=== PATIENT | male | born 1990 | race Caucasian/White ===

== ENCOUNTER 2020-02-21 18:18 | Emergency (ER) | payer OTHER, SELFPAY ==
[2020-02-21 19:49] VITALS: BP 166/102; PULSE 74; RESP 16; TEMP 37.1; O2SAT 100; BMI 28.7
--- NOTE | 2020-02-21 21:58 | ED.GENADULT ---
HPI - General Adult General Chief complaint: Headache Stated complaint: Covid symptoms Time Seen by Provider: 02/21/20 21:33 Source: patient Mode of arrival: ambulatory Limitations: language barrier (automation manager was used to obtain history) History of Present Illness HPI narrative: 30-year-old male who presents emergency department for evaluation headache and exposure to COVID-19. The patient states that his and [id number] both tested positive for COVID-19 and he lives with them. He states that today he began to feel ill he states that he developed a headache located throughout his entire head. The headache is a pressure like pain which is intermittent and is 6/10 at its worst. He had some slight rhinorrhea. He denied sore throat, loss of sense of taste or smell, fever, chills, cough, myalgias, arthralgias or diarrhea. 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 The patient does have a history of hypertension and did not take his antihypertensive medication today. Patient's blood pressure was elevated on presentation of 166/102. Related Data Allergies Allergy/AdvReac Type Severity Reaction Status Date / Time No Known Allergies Allergy Verified 02/21/20 19:53 [No Known Allergies*] Review of Systems Review of Systems: Yes all other systems are reviewed and are negative Neurologic: Reports Abnormal speech present [facility] Past Medical History [facility] Narrative: The patient denies tobacco, alcohol and drug use. Medical History Asthma Cholecystectomy planned HTN (hypertension) Surgical History Hx of tonsillectomy Social History Social History Advance Directives: No Physical Exam Vital Signs: Vital Signs: Last Vital Signs Temp 98.8 F 02/21/20 19:49 Pulse 74 02/21/20 19:49 Resp 16 02/21/20 19:49 BP 166/102 H 02/21/20 19:49 Pulse Ox 100 02/21/20 19:49 Body Mass Index 28.7 Const: General: cooperative and healthy appearing Orientation/consciousness: oriented to person and oriented to place Limitations: no limitations HENMT: Head: Yes normal to inspection, Yes normocephalic and Yes atraumatic Ears: external ears normal General nose exam: Normal external nose present and no nasal discharge noted Face and sinus: Yes normal facial exam and Yes sinus tenderness (Mild frontal and maxillary sinuses) Mouth: Normal oral and palatal mucosa present Throat: Yes posterior oropharynx normal Eyes: Periorbital: periorbital findings normal Eyelids: Yes eyelids normal Conjunctivae: conjunctivae normal Sclerae: sclerae normal Corneas: corneas normal Pupils: Equal, round and reactive pupils present Direct Ophthalmoscopy: normal light reflex Neck: Neck: Yes full ROM, Yes no lymphadenopathy, Yes no meningeal signs, Yes trachea midline and Yes supple Chest: Chest palpation & inspection: normal inspection of the chest and normal palpation of entire chest wall Resp: Effort & Inspection: normal respiratory effort and able to speak in complete sentences Auscultation: clear to auscultation bilaterally Cardio: Rate: regular rate Rhythm: regular rhythm Heart sounds: S1 normal heart sound present, S2 normal heart sound present and no murmurs GI: Inspection: Yes normal to inspection Palpation (GI): Soft to palpation, nontender, no guarding, not rigid and No hepatosplenomegaly present : General: Yes no CVA tenderness Back/Spine/Pelvis: Back: no CVA tenderness Cervical Spine: normal cervical lordosis Thoracic/Lumbar Spine: thoracic and lumbar spine normal to inspection Skin: Lesions: no lesions Rashes: no rashes Wounds: no wounds Neuro: General: oriented to person, oriented to place and no meningeal signs Cranial nerves: Yes CN's II-XII intact bilaterally and Yes Equal, round and reactive pupils present Cognition (Neuro): normal cognition Speech: Abnormal speech present Motor exam (neuro): 5/5 motor strength present throughout Extrem: General: Yes normal to inspection and Yes full ROM Psych: Appearance: well kempt Mental Status: mental status grossly normal Speech and movement: Normal speech and movement present Affect: normal affect Attitude: cooperative Thought process: Normal thought process present Thought content: Normal thought content present Course Course Course Narrative: 30-year-old male with history of hypertension and asthma who presents to the emergency department for evaluation of headache x1 day and exposure to COVID-19. The patient's and [id number] he lives with both tested positive for COVID-19. The patient's examination reveals hypertension but the patient was not compliant with his medications. He does have mild maxillary and frontal sinus tenderness otherwise exam was unremarkable. The patient most likely has COVID-19. He was tested and I told him that his results should return in 2-4 days. The patient will need to quarantine for 14 days therefore he was given note not return to work for 14 days. I did discuss signs and symptoms of COVID-19 and warning signs to return to the emergency department. Discharge Plan Discharge Clinical Impression: Close exposure to 2019-nCoV Headache Qualifiers: Headache type: unspecified Headache chronicity pattern: acute headache Intractability: not intractable Qualified Code(s): R51.9 - Headache, unspecified Patient Disposition: Home, Self-Care Instructions: COVID-19 (Coronavirus Disease 2019) (ED) Additional Instructions: Based on your symptoms and history, you were tested forCOVID-19. Your RESULT IS PENDING at this time. Your result should be back in 2-4 days. You will be contacted with either a NEGATIVE OR POSITIVE results. Please wait until we contact you for your results. Based on your evaluation today, it is okay to send you home. Please plan for self quarantine for up to 14 days. Do not expose yourself to others. You may not go to work. If testing does come back negative you may return to activities as long as you are no longer having any symptoms for at least 3 days. Please continue to wear a mask, follow cold instructions and wash your hands frequently. You may take Tylenol 325 mg pills, 2 pills every 4 hours as needed for pain or fever. You may also take ibuprofen(Motrin/Advil) 200 mg pills, 3 pills every 6 hours as needed for pain or fever. Patient seen in the emergency department should be excused from work until negative test results AND until 72 hours without any symptoms have gone away completely OR at least 10 days have passed since symptoms first appeared or since last exposure to COVID-19 positive patient CDC Guidelines for home isolation: - Stay away from others - WEAR A MASK if you are sick AND STAY HOME - Cover your mouth and nose with a tissue when you cough or sneeze. Dispose of tissues in a lined trash can and wash your hands immediately with soap and water for at least 20 seconds. If soap and water are not available, clean hands with alcohol-based hand religious educator that contains at least 60% alcohol. - Clean your hands often with soap and water for at least 20 seconds - Avoid touching your eyes, nose and mouth with unwashed hands - Do not share dishes, drinking glasses, cups, eating utensils, towels, or bedding with other people in your home. After using these items, wash them thoroughly with soap and water or put in the parts technician. - Clean high-touch surfaces in your isolation area ( sick room and bathroom) every day; let a caregiver clean and disinfect high-touch surfaces in other areas of the home. Clean the area or item with soap and water or another detergent if it is dirty. Then, use a household disinfectant. - Limit contact with pets and animals: If you must care for a pet, wash your hands before and after interacting with them). Stand Alone Forms: Work/School Release
== END 2020-02-21 22:16 | disposition home or self-care (01) ==
PROVIDERS: Emergency Provider Emergency Medicine Emergency Medical Services
DX: R51.9 Headache, unspecified (principal); Z20.828 Contact with and (suspected) exposure to other viral communicable diseases; I10 Essential (primary) hypertension; J45.909 Unspecified asthma, uncomplicated
CPT/HCPCS: 36415; 99283; U0003

== ENCOUNTER 2020-10-02 06:25 | Emergency (ER) | payer OTHER, SELFPAY ==
--- NOTE | 2020-10-02 | ECG_ITS ---
Test Reason : CHEST PAIN Blood Pressure : / mmHG Vent. Rate : 079 BPM Atrial Rate : 079 BPM P-R Int : 148 ms QRS Dur : 080 ms QT Int : 366 ms P-R-T Axes : 046 026 012 degrees QTc Int : 419 ms Normal sinus rhythm Nonspecific T wave abnormality Abnormal ECG No previous ECGs available Referred By: Generic ED Physician Electronically Signed By:MICHAEL ROD
--- NOTE | ~2020-10-02 | XR_ITS ---
EXAMINATION: XR CHEST CLINICAL INFORMATION: Chest pain COMPARISON: None TECHNIQUE: Frontal view of the chest was obtained. FINDINGS: No significant abnormality is noted involving the heart, lungs, mediastinum, bony thorax or soft tissues. XR/XR chest 1V IMPRESSION: Unremarkable chest examination.
[2020-10-02 06:35] VITALS: BP 136/86; PULSE 83; RESP 16; TEMP 37.1; O2SAT 98
--- NOTE | 2020-10-02 08:02 | ED_ITS ---
HPI - Chest Pain General Chief Complaint: Chest Pain Stated Complaint: Chest pain Time Seen by Provider: 10/02/20 08:02 Source: patient Mode of arrival: ambulatory History of Present Illness HPI narrative: Patient with history of hypertension well controlled no known history of coronary artery disease no history of substance abuse or smoking noticed pain in mid chest since 05:00 while at work, sharp in character lasting for 5 minutes felt some pain in left shoulder also no pain at this time. Patient denies any shortness of breath no stomach issues no nausea no vomiting no diaphoresis Related Data Allergies Allergy/AdvReac Type Severity Reaction Status Date / Time No Known Allergies Allergy Verified 02/21/20 19:53 [No Known Allergies*] Review of Systems Review of Systems: Yes all other systems are reviewed and are negative [facility] Past Medical History Medical History Asthma Cholecystectomy planned HTN (hypertension) Surgical History Hx of tonsillectomy Social History Social History Alcohol intake: never Smoked in Last 30 Days: No Use of substances other than those prescribed or required for medical reasons: No Advance Directives: No Advance Directives Information Provided: No Physical Exam Vital Signs: Vital Signs: Last Vital Signs Temp 97.8 F 10/02/20 09:48 Pulse 71 10/02/20 09:48 Resp 15 10/02/20 09:48 BP 126/86 10/02/20 09:48 Pulse Ox 100 10/02/20 09:48 Body Mass Index 30.0 Appearance: Alert. Oriented X3. No acute distress. Eyes: No pallor or icterus ENT: Pharynx normal. Oral Mucosa moist Neck: Normal inspection. Neck supple. CVS: Normal heart rate and rhythm. Pulses normal. No murmur or gallop Respiratory: No respiratory distress. Equal air entry bilateral, no wheezing/rales/rhonchi Abdomen: Soft and nontender. Bowel sounds are present, no mass palpable, no CVA tenderness Skin: Skin warm and dry. Normal skin color. Normal skin turgor. Extremities: No lower extremity edema. No calf tenderness Neuro: Oriented X 3. MDM - Chest Pain MDM Narrative Medical decision making narrative: Patient with atypical chest pain with no significant risk factor normal EKG and normal troponin will discharge patient home advised to follow with PCP Lab Data Attestation: I reviewed the patient's lab results. Result diagrams: 10/02/20 09:47 10/02/20 09:47 Labs: Lab Results 10/02/20 10/02/20 10/02/20 Range/Units 09:47 09:47 09:47 WBC 3.9 L (4.8-10.8) X10*3/uL RBC 4.32 L (4.60-5.80) X10*6/uL Hgb 13.0 L (14.0-18.0) g/dl Hct 39.5 L (42-52) % MCV 91.4 (80-98) fL MCH 30.1 (27.0-33.0) pg MCHC 32.9 (31.0-36.0) g/dl RDW 11.9 (11.0-16.0) % Plt Count 301 (160-400) X10*3/uL MPV 9.7 (9.4-12.4) fL Immature Gran % (Auto) 0.0 (0.0-0.4) % Neut % (Auto) 50.2 (45-73) % Lymph % (Auto) 35.1 (20-40) % [place] % (Auto) 8.2 (2-11) % Eos % (Auto) 5.7 H (0-4) % Baso % (Auto) 0.8 (0-2) % Lymph # (Auto) 1.4 (1.2-4.9) X10*3/uL [place] # (Auto) 0.3 (0.1-1.2) X10*3/uL Eos # (Auto) 0.2 (0.0-0.4) X10*3/uL Baso # (Auto) 0.0 (0.0-0.2) X10*3/uL Abs Immat Gran (auto) 0.00 (0.00-0.03) X10*3/uL Absolute Neuts (auto) 2.0 (2.0-8.3) X10*3/uL Absolute Nucleated RBC 0.000 (0.0-0.012) X10*3/uL Nucleated RBC % (auto) 0.0 (0.0-0.2) /100WBC Sodium 141 (135-145) mmol/L Potassium 3.9 (3.3-5.1) mmol/L Chloride 109 H (96-108) mmol/L Carbon Dioxide 25 (22-29) mmol/L Anion Gap 11 L (12-20) BUN 9 (9-16) mg/dL Creatinine 0.88 (0.5-1.4) mg/dL Estim Creat Clear Calc 162.2 Estimated GFR > 60 Random Glucose 87 (60-115) mg/dL Calcium 9.8 (8.4-10.2) mg/dL Troponin I High Sens < 3.5 (<3.5-35.0) ng/L ECG Data ECG #1: Attestation: I personally reviewed and interpreted this ECG as follows: Interpretation: Normal sinus rhythm heart rate 79 beats per minute nonspecific ST T wave changes normal axis normal intervals no acute ischemia Scores Heart Score History: -0- slightly suspicious ECG: -0- normal Age: -0- < or = 45 Risk factory: -1- 1 or 2 risk factors Troponin: -0- < or = normal limit Score: 1 Risk: 1.7% Discharge Plan Discharge Clinical Impression: Chest pain Qualifiers: Chest pain type: unspecified Qualified Code(s): R07.9 - Chest pain, unspecified Patient Disposition: Home, Self-Care Instructions: Chest Pain (ED) Additional Instructions: Follow-up with your PCP for further evaluation Take baby aspirin daily Report to the ER if worsening/recurrence of chest pain Print Language: [place]
[2020-10-02] MEDS: Aspirin Enteric Coated 81 MG TABLET.DR 162 MG PO (09:42)
[2020-10-02 09:48] VITALS: BP 126/86; PULSE 71; RESP 15; TEMP 36.6; O2SAT 100
[2020-10-02 09:55] LABS: MANUAL DIFF FLAG NO
[2020-10-02 09:56] LABS: Basophils Percent Auto 0.8 % (0-2); Eosinophils Absolute Auto 0.2 X10*3/uL (0.0-0.4); Eosinophils Percent Auto 5.7 % (0-4); Hematocrit 39.5 % (42-52); Lymphocytes Absolute Auto 1.4 X10*3/uL (1.2-4.9); Lymphocytes Percent Auto 35.1 % (20-40); Mean Corpuscular HGB Conc 32.9 g/dl (31.0-36.0); Mean Corpuscular Hemoglobin 30.1 pg (27.0-33.0); Mean Corpuscular Volume 91.4 fL (80-98); Mean Platelet Volume 9.7 fL (9.4-12.4); Monocytes Absolute Auto 0.3 X10*3/uL (0.1-1.2); Monocytes Percent Auto 8.2 % (2-11); Neutrophils Percent Auto 50.2 % (45-73); Platelet Count 301 X10*3/uL (160-400); Red Blood Count 4.32 X10*6/uL (4.60-5.80); Red Cell Distribution Width 11.9 % (11.0-16.0); White Blood Count 3.9 X10*3/uL (4.8-10.8)
[2020-10-02 10:37] LABS: Troponin-I High Sensitivity < 3.5 ng/L (<3.5-35.0)
[2020-10-02 10:39] LABS: Anion Gap 11 (12-20); Blood Urea Nitrogen 9 mg/dL (9-16); Calcium 9.8 mg/dL (8.4-10.2); Carbon Dioxide 25 mmol/L (22-29); Chloride 109 mmol/L (96-108); Creatinine Clr Calc Pharmacy 162.2; Estimated Glomerular Filt Rate > 60; Glucose Random 87 mg/dL (60-115); Potassium 3.9 mmol/L (3.3-5.1); Sodium 141 mmol/L (135-145)
== END 2020-10-02 11:51 | disposition home or self-care (01) ==
PROVIDERS: Emergency Provider Internal Medicine; PCP Internal Medicine
DX: R07.9 Chest pain, unspecified (principal); I10 Essential (primary) hypertension
CPT/HCPCS: 36415; 71045; 80048; 84484; 85025; 93005; 99283; 99285

== ENCOUNTER 2022-03-05 15:14 | Emergency (ER) | payer OTHER, SELFPAY ==
--- NOTE | ~2022-03-05 | CT_ITS ---
EXAMINATION: CT HEAD WITHOUT CONTRAST CLINICAL INFORMATION: Headache and weakness COMPARISON: None TECHNIQUE: Contiguous axial imaging was performed from the skull base to vertex without intravenous administration of contrast. This CT examination was performed using dose optimization techniques as appropriate, variously including the following: *Automated exposure control *Adjustment of mA and/or kV according to patient size (this includes techniques or standardized protocols for targeted exams where dose is matched to indication/reason for exam; i.e. extremities or head) *Use of iterative reconstruction technique DLP: 768 mGy-cm FINDINGS: There is no evidence of acute intracranial hemorrhage or territorial infarction. No abnormal mass effect or midline shift is seen. Stiles to white matter differentiation is well preserved. No extra-axial fluid collections are identified. The ventricles are normal in size. There is no abnormal attenuation within the brain parenchyma. The osseous structures and soft tissues are normal. The mastoid air cells and visualized portions of the paranasal sinuses are well-aerated. CT/CT head/brain wo IV con IMPRESSION: No acute intracranial pathology.
--- NOTE | ~2022-03-05 | XR_ITS ---
EXAMINATION: XR CHEST CLINICAL INFORMATION: Chest pain. COMPARISON: Chest done on 10/02/2020. TECHNIQUE: Frontal view of the chest was obtained. FINDINGS: Low lung volume is present. Both lungs are clear. The cardiac mediastinal silhouette is within normal limit. No evidence of any pleural effusion or pneumothorax. The visualized upper abdomen is unremarkable. XR/XR chest 1V IMPRESSION: No radiographic evidence of acute cardiopulmonary disease.
--- NOTE | 2022-03-05 15:15 | ECG_ITS ---
Test Reason : CHEST PAIN Blood Pressure : / mmHG Vent. Rate : 108 BPM Atrial Rate : 108 BPM P-R Int : 142 ms QRS Dur : 074 ms QT Int : 322 ms P-R-T Axes : 039 007 034 degrees QTc Int : 431 ms Sinus tachycardia Nonspecific T wave abnormality Abnormal ECG When compared with ECG of 02-OCT-2020 06:28, No significant change was found Referred By: Ellie Cruz Electronically Signed By:BEBETO KEE
[2022-03-05 15:22] VITALS: BP 144/99; PULSE 106; RESP 17; TEMP 36.4; O2SAT 98; BMI 31.8
[2022-03-05 15:41] LABS: MANUAL DIFF FLAG NO
[2022-03-05 15:43] LABS: Basophils Percent Auto 0.5 % (0-2); Eosinophils Absolute Auto 0.2 X10*3/uL (0.0-0.4); Eosinophils Percent Auto 2.7 % (0-4); Hematocrit 43.7 % (42.0-52.0); Hemoglobin 14.4 g/dl (14.0-18.0); Imm Gran Abs Auto 0.09 X10*3/uL (0.00-0.03); Imm Gran Pct Auto 1.4 % (0.0-0.4); Lymphocytes Absolute Auto 2.4 X10*3/uL (1.2-4.9); Lymphocytes Percent Auto 36.3 % (20-40); Mean Corpuscular Hemoglobin 29.2 pg (27.0-33.0); Mean Corpuscular Volume 88.6 fL (80.0-98.0); Mean Platelet Volume 8.9 fL (9.4-12.4); Monocytes Absolute Auto 0.5 X10*3/uL (0.1-1.2); Monocytes Percent Auto 8.2 % (2-11); Neutrophils Absolute Auto 3.3 x10*3/uL (2.0-8.3); Neutrophils Percent Auto 50.9 % (45-73); Platelet Count 348 X10*3/uL (160-400); Red Blood Count 4.93 X10*6/uL (4.60-5.80); Red Cell Distribution Width 12.7 % (11.0-16.0); White Blood Count 6.6 X10*3/uL (4.8-10.8)
[2022-03-05 15:56] LABS: Alanine Aminotransferase 49 U/L (0-40); Albumin Level 4.1 g/dL (3.5-5.0); Alkaline Phosphatase 95 U/L (39-117); Anion Gap 14 (12-20); Aspartate Amino Transferase 30 U/L (5-37); Bilirubin Total 0.3 mg/dL (0.0-1.0); Blood Urea Nitrogen 9 mg/dL (9-16); Calcium 9.8 mg/dL (8.4-10.2); Carbon Dioxide 28 mmol/L (22-29); Chloride 105 mmol/L (96-108); Creatinine Clr Calc Pharmacy 169.5; Estimated Glomerular Filt Rate > 60; Glucose Random 90 mg/dL (60-115); Potassium 4.2 mmol/L (3.3-5.1); Sodium 143 mmol/L (135-145); Total Protein 7.3 g/dL (6.5-8.0)
[2022-03-05 16:03] LABS: Troponin-I High Sensitivity < 3.5 ng/L (<3.5-35.0)
[2022-03-05 16:20] LABS: Influenza A PCR NEGATIVE (Negative); Influenza B PCR NEGATIVE (Negative); Resp Syncy Virus RNA Qual PCR NEGATIVE (Negative); SARS COV2 PCR INHOUSE POSITIVE (Negative)
--- NOTE | 2022-03-05 16:35 | ED_ITS ---
HPI - Chest Pain General Chief Complaint: Chest Pain Stated Complaint: chest pain Time Seen by Provider: 03/05/22 16:34 Source: patient Mode of arrival: ambulatory Limitations: no limitations History of Present Illness HPI narrative: 32 year old male history of asthma, HTN presenting to the emergency department with complaints of substernal nonradiating chest pain that is intermittent sharp in nature, headache ( diffuse w/o truama or vision changes) , dizziness ( room spinning), subjective fevers and chills, malaise, fatigue x4 days. Patient is unable to tell me what makes chest pain better or worse. He denies any known sick contacts. Denies cough, nausea, vomiting, abdominal pain, shortness of breath, headache, vision changes, dizziness, weakness. No significant personal cardiac hx. Family hx of stroke, [place]. No hx of sudden cardiac in family. No personal history of PE or DVT. Related Data Allergies Allergy/AdvReac Type Severity Reaction Status Date / Time No Known Allergies Allergy Verified 03/05/22 15:29 [No Known Allergies*] Review of Systems Review of Systems: Constitutional : No Weight loss, + Fever, + Chills, + Fatigue, + Malaise ENT/Mouth : No sore throat, No Rhinorrhea Eyes: No Eye Pain, No Swelling, No Redness Cardiovascular : + Chest Pain, No SOB, No Dyspnea on Exertion, No Orthopnea, No Edema, No Palpitations Respiratory : No Cough, No Sputum, No Wheezing Gastrointestinal : No Nausea, No Vomiting, No Diarrhea, No Constipation, No abdominal Pain, No Hematochezia, No Melena Genitourinary : No Dysuria, No Urinary Frequency, No Hematuria, Musculoskeletal : No joint pain, No Myalgias, No Joint Swelling Skin : No Skin Lesions, No rash Neuro : No Weakness, No Numbness, No Dizziness, No Headache Psych : No Anxiety/Panic, No Depression All other systems reviewed and are negative Yes all other systems are reviewed and are negative PMFSH Past Medical History Attestation statement: The following information was validated with the patient. Source: old records reviewed and nursing notes reviewed Medical History Asthma Cholecystectomy planned HTN (hypertension) Surgical History Hx of tonsillectomy Social History Social History Alcohol intake: never Smoked in Last 30 Days: No Advance Directives: No Advance Directives Information Provided: No Physical Exam Vital Signs: Vital Signs: Last Vital Signs Temp 97.6 F 03/05/22 16:50 Pulse 91 03/05/22 16:50 Resp 18 03/05/22 16:50 BP 138/101 H 03/05/22 16:50 Pulse Ox 98 03/05/22 16:50 O2 Del Method 03/05/22 16:50 BMI result Body Mass Index 31.8 vss however slight tachycardia Appearance: Alert.? Oriented X3.? No acute distress.? Patient well-appearing Head: Normocephalic, atraumatic, no step-offs or deformities Eyes: Pupils equal, round and reactive to light.? Neck: Normal inspection.? Neck supple.? CVS: Rapid rate normal rhythm likely sinus tachycardia..? Pulses normal.? Respiratory: No respiratory distress.? Breath sounds normal.? Abdomen: Soft and nontender.? Skin: Skin warm and dry.? Normal skin color.? Normal skin turgor.? Extremities: No lower extremity edema.? No calf ttp, negative negra b/l. 5/5 strength to bilateral upper and lower extremities Back: No midline tenderness, no C-spine tenderness, full range of motion, no CVA tenderness bilaterally Neuro: Oriented X 3.? No motor deficit.? No sensory deficit. CN 2-12 intact . Ambulating with steady gait normal coordination. Normal [id number], [id number]. NIH stroke scale 0 Course Reevaluation(s) Reevaluation #1: CBC appears to be around patient's baseline. Chemistry with no acute findings requiring intervention. Patient's troponin is negative, EKG nonischemic unlikely that this is ACS. Chest x-ray unremarkable. CT of head and viral panel pending. Time: 17:22 Reevaluation #2: Patient is noted to be COVID-19 positive likely contributing to his symptoms. Head CT has been obtained however still pending results. Time: 17:38 Reevaluation #3: Patient tells me chest pain has improved. He is not experiencing it as bad as before much improved. Headache also improved. Second troponin 5.4, EKG nonischemic unlikely ACS. There was a slight increase in troponin likely secondary to viral infection/reactive, however patient pain improving and likley viral. Head CT unremarkable. Neuro remains nonfocal and cerebellar intact. Educated patient on diagnosis and treatment plan, answered all question, patient verbalizes understanding. At this time patient will be discharged home, advised to return with new or worsening symptoms. Educated on worrisome signs and symptoms and when to return. At this time I feel comfortable discharge home. Time: 17:39 Medications Administered Discontinued Medications Generic Name Dose Route Start Last Admin Trade Name Mar PRN Reason Stop Dose Admin Losartan Potassium 50 mg 03/05/22 16:43 03/05/22 16:49 Losartan Potassium 50 Mg Tablet PO 03/05/22 16:44 50 mg ONCE ONE Administration Protocol Medical Decision Making Medical Decision Making [facility] Narrative: 1637 32-year-old male presents with subjective fevers, chills, fatigue, headache, dizziness, malaise and substernal nonradiating sharp chest pain that is intermittent in nature x4 days. Physical examination benign. Patient is noted to be hypertensive upon exam, patient tells me he is on Cozaar 50 mg daily however he has not taken it today. Will give him is home dose at this time Likely viral infection and typical headache. Unlikely PE, pneumonia, ACS, ICH, stroke, posterior stroke. Plan labs, troponin, D-dimer, EKG, chest x-ray will obtain UA and viral panel Differential Diagnosis Differential Diagnoses: The differential diagnosis associated with the presentation includes Likely viral infection and typical headache. Unlikely PE, pneumonia, ACS, ICH, stroke, posterior stroke. Admission/Observation Consideration of admission/observation: Escalation of care including admission/observation considered Lab Data [facility] Lab Attestation statement: I reviewed the patient's lab results. 03/05/22 15:36 03/05/22 15:36 Labs: Lab Results 03/05/22 03/05/22 03/05/22 Range/Units 15:36 15:36 15:36 WBC 6.6 (4.8-10.8) X10*3/uL RBC 4.93 (4.60-5.80) X10*6/uL Hgb 14.4 (14.0-18.0) g/dl Hct 43.7 (42.0-52.0) % MCV 88.6 (80.0-98.0) fL MCH 29.2 (27.0-33.0) pg MCHC 33.0 (31.0-36.0) g/dl RDW 12.7 (11.0-16.0) % Plt Count 348 (160-400) X10*3/uL MPV 8.9 L (9.4-12.4) fL Immature Gran % (Auto) 1.4 H (0.0-0.4) % Neut % (Auto) 50.9 (45-73) % Lymph % (Auto) 36.3 (20-40) % Barnes % (Auto) 8.2 (2-11) % Eos % (Auto) 2.7 (0-4) % Baso % (Auto) 0.5 (0-2) % Lymph # (Auto) 2.4 (1.2-4.9) X10*3/uL Barnes # (Auto) 0.5 (0.1-1.2) X10*3/uL Eos # (Auto) 0.2 (0.0-0.4) X10*3/uL Baso # (Auto) 0.0 (0.0-0.2) X10*3/uL Abs Immat Gran (auto) 0.09 H (0.00-0.03) X10*3/uL Absolute Neuts (auto) 3.3 (2.0-8.3) x10*3/uL Absolute Nucleated RBC 0.000 (0.0-0.012) X10*3/uL Nucleated RBC % (auto) 0.0 (0.0-0.2) /100WBC D-Dimer High Sensitivty NG/ML Sodium 143 (135-145) mmol/L Potassium 4.2 (3.3-5.1) mmol/L Chloride 105 (96-108) mmol/L Carbon Dioxide 28 (22-29) mmol/L Anion Gap 14 (12-20) BUN 9 (9-16) mg/dL Creatinine 0.85 (0.5-1.4) mg/dL Estim Creat Clear Calc 169.5 Estimated GFR > 60 Random Glucose 90 (60-115) mg/dL Calcium 9.8 (8.4-10.2) mg/dL Magnesium (1.6-2.6) mg/dL Total Bilirubin 0.3 (0.0-1.0) mg/dL AST 30 (5-37) U/L ALT 49 H (0-40) U/L Alkaline Phosphatase 95 (39-117) U/L Troponin I High Sens < 3.5 (<3.5-35.0) ng/L B-Natriuretic Peptide (<100) pg/mL Total Protein 7.3 (6.5-8.0) g/dL Albumin 4.1 (3.5-5.0) g/dL Influenza Type A (PCR) (Negative) Influenza Type B (PCR) (Negative) RSV RNA Qual (PCR) (Negative) SARS-CoV-2 RNA (RT-PCR) (Negative) 03/05/22 03/05/22 03/05/22 Range/Units 15:36 17:19 17:19 WBC (4.8-10.8) X10*3/uL RBC (4.60-5.80) X10*6/uL Hgb (14.0-18.0) g/dl Hct (42.0-52.0) % MCV (80.0-98.0) fL MCH (27.0-33.0) pg MCHC (31.0-36.0) g/dl RDW (11.0-16.0) % Plt Count (160-400) X10*3/uL MPV (9.4-12.4) fL Immature Gran % (Auto) (0.0-0.4) % Neut % (Auto) (45-73) % Lymph % (Auto) (20-40) % Barnes % (Auto) (2-11) % Eos % (Auto) (0-4) % Baso % (Auto) (0-2) % Lymph # (Auto) (1.2-4.9) X10*3/uL Barnes # (Auto) (0.1-1.2) X10*3/uL Eos # (Auto) (0.0-0.4) X10*3/uL Baso # (Auto) (0.0-0.2) X10*3/uL Abs Immat Gran (auto) (0.00-0.03) X10*3/uL Absolute Neuts (auto) (2.0-8.3) x10*3/uL Absolute Nucleated RBC (0.0-0.012) X10*3/uL Nucleated RBC % (auto) (0.0-0.2) /100WBC D-Dimer High Sensitivty < 150 NG/ML Sodium (135-145) mmol/L Potassium (3.3-5.1) mmol/L Chloride (96-108) mmol/L Carbon Dioxide (22-29) mmol/L Anion Gap (12-20) BUN (9-16) mg/dL Creatinine (0.5-1.4) mg/dL Estim Creat Clear Calc Estimated GFR Random Glucose (60-115) mg/dL Calcium (8.4-10.2) mg/dL Magnesium 2.1 (1.6-2.6) mg/dL Total Bilirubin (0.0-1.0) mg/dL AST (5-37) U/L ALT (0-40) U/L Alkaline Phosphatase (39-117) U/L Troponin I High Sens (<3.5-35.0) ng/L B-Natriuretic Peptide (<100) pg/mL Total Protein (6.5-8.0) g/dL Albumin (3.5-5.0) g/dL Influenza Type A (PCR) NEGATIVE (Negative) Influenza Type B (PCR) NEGATIVE (Negative) RSV RNA Qual (PCR) NEGATIVE (Negative) SARS-CoV-2 RNA (RT-PCR) POSITIVE A (Negative) 03/05/22 03/05/22 Range/Units 17:19 17:19 WBC (4.8-10.8) X10*3/uL RBC (4.60-5.80) X10*6/uL Hgb (14.0-18.0) g/dl Hct (42.0-52.0) % MCV (80.0-98.0) fL MCH (27.0-33.0) pg MCHC (31.0-36.0) g/dl RDW (11.0-16.0) % Plt Count (160-400) X10*3/uL MPV (9.4-12.4) fL Immature Gran % (Auto) (0.0-0.4) % Neut % (Auto) (45-73) % Lymph % (Auto) (20-40) % Barnes % (Auto) (2-11) % Eos % (Auto) (0-4) % Baso % (Auto) (0-2) % Lymph # (Auto) (1.2-4.9) X10*3/uL Barnes # (Auto) (0.1-1.2) X10*3/uL Eos # (Auto) (0.0-0.4) X10*3/uL Baso # (Auto) (0.0-0.2) X10*3/uL Abs Immat Gran (auto) (0.00-0.03) X10*3/uL Absolute Neuts (auto) (2.0-8.3) x10*3/uL Absolute Nucleated RBC (0.0-0.012) X10*3/uL Nucleated RBC % (auto) (0.0-0.2) /100WBC D-Dimer High Sensitivty NG/ML Sodium (135-145) mmol/L Potassium (3.3-5.1) mmol/L Chloride (96-108) mmol/L Carbon Dioxide (22-29) mmol/L Anion Gap (12-20) BUN (9-16) mg/dL Creatinine (0.5-1.4) mg/dL Estim Creat Clear Calc Estimated GFR Random Glucose (60-115) mg/dL Calcium (8.4-10.2) mg/dL Magnesium (1.6-2.6) mg/dL Total Bilirubin (0.0-1.0) mg/dL AST (5-37) U/L ALT (0-40) U/L Alkaline Phosphatase (39-117) U/L Troponin I High Sens 5.4 D (<3.5-35.0) ng/L B-Natriuretic Peptide < 10 (<100) pg/mL Total Protein (6.5-8.0) g/dL Albumin (3.5-5.0) g/dL Influenza Type A (PCR) (Negative) Influenza Type B (PCR) (Negative) RSV RNA Qual (PCR) (Negative) SARS-CoV-2 RNA (RT-PCR) (Negative) Independent Interpretation I performed an independent interpretation of an: Plain X-Ray Radiology Impression Discussion of test interpretation with radiology: I have reviewed the radiologist's reading. External Record Review External record reviewed: Outpatient record, Prior outpatient labs, Prior outp atient radiology, Primary care record and Outside ED record Chronic Conditions Patient?s care impacted by: Hypertension Core Measures AMI core measures followed: Yes Measure exclusions: not indicated Critical Care Time Critical Care Time Critical Care Time: No Discharge Plan Discharge Clinical Impression: COVID-19 Patient Disposition: Home, Self-Care Instructions: COVID-19 (Coronavirus Disease 2019) (ED) Additional Instructions: Take your medications as prescribed. If you were prescribed antibiotics today, it is important that you take your medication to their entirety, do not skip any doses, do not finish them early. Today you tested positive for COVID-19. Take Ibuprofen every 6 hours and Tylenol every 4 hours as needed for fevers or body aches. Quarantine for 5 days and ensure you wear a mask. After 5 days you should wear a mask for 5 days after that. Practice social distancing and good hand hygiene. Drink plenty of fluids. Follow-up with your primary care provider this week. Return to the emergency department with new or worsening symptoms. In case of emergency call 911 You can purchase a pulse oximeter from your local pharmacy or grocery store, and monitor your oxygen saturation if it goes below 94% you should return to the emergency department for further evaluation. CT/CT head/brain wo IV con IMPRESSION: No acute intracranial pathology. XR/XR chest 1V IMPRESSION: No radiographic evidence of acute cardiopulmonary disease. ? Referrals: Physician,Unknown J [Primary Care Provider] - 2 days Stand Alone Forms: Work/School Release
--- NOTE | 2022-03-05 16:38 | ECG_ITS ---
Test Reason : CHEST PAIN Blood Pressure : / mmHG Vent. Rate : 096 BPM Atrial Rate : 096 BPM P-R Int : 148 ms QRS Dur : 074 ms QT Int : 330 ms P-R-T Axes : 035 006 015 degrees QTc Int : 416 ms Normal sinus rhythm Nonspecific T wave abnormality Borderline ECG When compared with ECG of 05-MAR-2022 15:20, No significant change was found Referred By: Neema Hart Electronically Signed By:BEBETO KEE
[2022-03-05] MEDS: Losartan Potassium 50 MG TABLET PO (16:49)
[2022-03-05 16:50] VITALS: BP 138/101; PULSE 91; RESP 18; TEMP 36.4; O2SAT 98
--- NOTE | 2022-03-05 17:30 | PC.NURSE ---
Patient assessed with use of help desk intern primary language is Derik mcdonald . heart rate regular at 99 beats per minutes . breathing even and unlabored . lungs clear throughout . skin pink warm and dry . abdomen soft . positive bowel sounds throughout . labs obtained . EKG obtained . patient placed on monitoring analyst.
[2022-03-05 17:36] LABS: D Dimer High Sensitivity < 150 NG/ML
[2022-03-05 17:41] LABS: Magnesium 2.1 mg/dL (1.6-2.6)
[2022-03-05 17:48] LABS: B Type Natriuretic Peptide < 10 pg/mL (<100)
[2022-03-05 17:50] LABS: Troponin-I High Sensitivity 5.4 ng/L (<3.5-35.0)
--- NOTE | 2022-03-05 18:26 | PC.NURSE ---
Patient a/ox4 VSS . Went over discharge instructions as ordered by provider . patient to follow up with primary care . no questions at this time .
== END 2022-03-05 18:27 | disposition home or self-care (01) ==
PROVIDERS: Physician Assistant; Emergency Provider Internal Medicine
DX: U07.1 COVID-19 (principal); R51.9 Headache, unspecified; R07.89 Other chest pain; R06.02 Shortness of breath; R42 Dizziness and giddiness; Z79.899 Other long term (current) drug therapy
CPT/HCPCS: 0241U; 36415; 70450; 71045; 80053; 83735; 83880; 84484; 85025; 85379; 93005; 96374; 99284